=== PATIENT | female | born 2000 | race Caucasian/White ===

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

== ENCOUNTER 2020-11-29 19:09 | Emergency (ER) | payer OTHER, MEDICAID ==
[~2020-11-29] VITALS: Ht 152.4 cm; Wt 47.6 kg
[~2020-11-29 19:09] MED LIST changes: +FLAGYL500 M1 PO
[2020-11-29 19:16] VITALS: BP 116/76
[2020-11-29] MEDS ORDERED: IBUPROFEN 600600 M1 PO ×2 (20:03→20:09)
== END 2020-11-29 20:36 | disposition home or self-care (01) ==
LOC: M.ERS 19:09
DX: S63.592A Other specified sprain of left wrist, initial encounter (principal); Z88.1 Allergy status to other antibiotic agents; X50.1XXA Overexertion from prolonged static or awkward postures, initial encounter; Y93.89 Activity, other specified; Y92.89 Other specified places as the place of occurrence of the external cause; Y99.8 Other external cause status

== ENCOUNTER 2020-12-25 15:22 | Emergency (ER) | payer OTHER, MEDICAID ==
[~2020-12-25] VITALS: Ht 152.4 cm; Wt 49.0 kg
[~2020-12-25 15:22] MED LIST changes: +IBUPROFEN 600600 M1 PO
[2020-12-25] MEDS ORDERED: MEDROLDOSEPACK PO (16:08)
[2020-12-25] MEDS ORDERED: NAPROSYN500 MG PO (16:08)
[2020-12-25 16:24] VITALS: BP 109/73
== END 2020-12-25 16:25 | disposition home or self-care (01) ==
LOC: M.ERS 15:22
DX: S16.1XXA Strain of muscle, fascia and tendon at neck level, initial encounter (principal); Z88.1 Allergy status to other antibiotic agents; X50.9XXA Other and unspecified overexertion or strenuous movements or postures, initial encounter; Y93.89 Activity, other specified; Y92.89 Other specified places as the place of occurrence of the external cause; Y99.8 Other external cause status

== ENCOUNTER 2021-01-04 09:26 | Emergency (ER) | payer OTHER, MEDICAID ==
[~2021-01-04] VITALS: Ht 154.9 cm; Wt 49.0 kg
[~2021-01-04 09:26] MED LIST changes: +MEDROLDOSEPACK PO; +NAPROSYN500 MG PO
[2021-01-04 10:45] VITALS: BP 98/66
[2021-01-04] MEDS ORDERED: ZPAK PO (10:45)
== END 2021-01-04 10:45 | disposition home or self-care (01) ==
LOC: M.ERS 09:26
DX: J06.9 Acute upper respiratory infection, unspecified (principal); Z20.822 Contact with and (suspected) exposure to COVID-19; Z88.1 Allergy status to other antibiotic agents

== ENCOUNTER 2021-03-04 15:33 | Emergency (ER) | payer OTHER, MEDICAID ==
[~2021-03-04] VITALS: Ht 154.9 cm; Wt 48.1 kg
[~2021-03-04 15:33] MED LIST changes: +ZPAK PO
[2021-03-04 16:33] VITALS: BP 110/70
== END 2021-03-04 16:34 | disposition home or self-care (01) ==
LOC: M.ERS 15:33
DX: Z20.822 Contact with and (suspected) exposure to COVID-19 (principal); Z88.1 Allergy status to other antibiotic agents

== ENCOUNTER 2021-03-29 08:29 | Emergency (ER) | payer OTHER, MEDICAID ==
[~2021-03-29] VITALS: Ht 152.4 cm; Wt 49.9 kg
[2021-03-29] MEDS ORDERED: MEDROLDOSEPACK PO (10:05)
[2021-03-29 10:20] VITALS: BP 110/75
== END 2021-03-29 10:20 | disposition home or self-care (01) ==
LOC: M.ERS 08:29
DX: M26.601 Right temporomandibular joint disorder, unspecified (principal); Z88.1 Allergy status to other antibiotic agents

== ENCOUNTER 2021-04-21 10:49 | Emergency (ER) | payer OTHER, MEDICAID ==
[~2021-04-21] VITALS: Ht 154.9 cm; Wt 49.9 kg
[2021-04-21] MEDS ORDERED: IBUPROFEN 800800 M1 PO (12:29)
[2021-04-21 12:38] VITALS: BP 115/70
== END 2021-04-21 12:39 | disposition home or self-care (01) ==
LOC: M.ERS 10:49
DX: S60.222A Contusion of left hand, initial encounter (principal); Z88.1 Allergy status to other antibiotic agents; W22.8XXA Striking against or struck by other objects, initial encounter; Y93.89 Activity, other specified; Y92.89 Other specified places as the place of occurrence of the external cause; Y99.8 Other external cause status

== ENCOUNTER 2021-10-17 12:00 | Emergency (ER) | payer OTHER, MEDICAID ==
[~2021-10-17] VITALS: Ht 154.9 cm; Wt 48.1 kg
[~2021-10-17 12:00] MED LIST changes: +IBUPROFEN 800800 M1 PO
[2021-10-17 12:54] VITALS: BP 110/78
== END 2021-10-17 12:55 | disposition home or self-care (01) ==
LOC: M.ERS 12:00
DX: S00.551A Superficial foreign body of lip, initial encounter (principal); Z88.1 Allergy status to other antibiotic agents; X58.XXXA Exposure to other specified factors, initial encounter; Y93.89 Activity, other specified; Y92.89 Other specified places as the place of occurrence of the external cause; Y99.8 Other external cause status